=== PATIENT | female | born 1980 | race Asian ===

== ENCOUNTER 2017-01-21 01:39 | Emergency (ER) | payer BC, OTHER ==
[~2017-01-21] VITALS: Ht 160 cm; Wt 104.0 kg
[2017-01-21 01:41] VITALS: Ht 160 cm; Wt 104.0 kg
--- NOTE | 2017-01-21 02:15 | ERD ---
ER Documentation Chief Complaint Date/Time DATE: 01/21/17 TIME: 02:13 Chief Complaint Vaginal bleed x14 wks Soaked 2 pads in 15 minutes HPI 37-year-old female with unknown last menstrual period, patient states that she is 14 weeks , presenting complaining of heavy vaginal bleeding today. Patient states that she already soiled 2 pads. She admits to having intermittent mild crampy pelvic pain. Patient states that she does have an OB/ [employer] and received an ultrasound earlier this morning, later in the afternoon started having vaginal bleeding. She denies any fever or dysuria or N /V/D/C ROS All systems reviewed and are negative except as per history of present illness. Allergies Allergies: Coded Allergies: No Known Allergy (Unverified , 01/14/16) PMhx/Soc Hx Alcohol Use: Yes Hx Substance Use: No Hx Tobacco Use: No Physical Exam Vitals Vital Signs Date Time Temp Pulse Resp B/P Pulse Ox O2 Delivery O2 Flow Rate FiO2 01/21/17 01:41 98.0 82 20 141/87 96 Physical Exam General: well-developed/well-nourished, in no apparent distress, non-toxic appearing HENT: NC/AT Eyes: Conjunctiva normal Neck: Supple Pulm: CTA bilaterally, normal breathing CV: Normal S1S2 GI: Soft, non-distended, normal bowel sounds, TTP on suprapubic region Back: No midline tenderness, no masses, No CVAT Ext: No clubbing, cyanosis, or edema Neuro: Alert and orientated Skin: intact, normal turgor Psych: Normal mood and mentation Result Diagram: 01/21/17 0205 Results 24 hrs Laboratory Tests Test 01/21/17 02:05 01/21/17 03:40 01/21/17 03:50 White Blood Count 19.310^3/ul Red Blood Count 3.7810^6/ul Hemoglobin 12.4g/dl Hematocrit 36.1% Mean Corpuscular Volume 95.5fl Mean Corpuscular Hemoglobin 32.8pg Mean Corpuscular Hemoglobin Concent 34.3g/dl Red Cell Distribution Width 12.5% Platelet Count 50083^3/UL Mean Platelet Volume 10.8fl Neutrophils % 79.6% Lymphocytes % 12.0% Monocytes % 6.0% Eosinophils % 1.1% Basophils % 0.3% Nucleated Red Blood Cells % 0.0/100WBC Neutrophils # (Manual) 15.410^3/ul Lymphocytes # 2.310^3/ul Monocytes # 1.210^3/ul Eosinophils # 0.210^3/ul Basophils # 0.110^3/ul Nucleated Red Blood Cells # 0.010^3/ul Beta HCG, Quantitative 15713.0mIU/ml Urine Color YELLOW Urine Clarity CLEAR Urine pH 7.0 Urine Specific [place] 1.014 Urine Ketones NEGATIVEmg/dL Urine Nitrite NEGATIVEmg/dL Urine Bilirubin NEGATIVEmg/dL Urine Urobilinogen NEGATIVEmg/dL Urine Leukocyte Esterase NEGATIVELeu/ul Urine Microscopic RBC > 182/HPF Urine Microscopic WBC 2/HPF Urine Hemoglobin 3+mg/dL Urine Glucose NEGATIVEmg/dL Urine Total Protein NEGATIVEmg/dl Bedside Urine pH (LAB) 7.0 Bedside Urine Protein (LAB) Negative Bedside Urine Glucose (UA) Negative Bedside Urine Ketones (LAB) Negative Bedside Urine Blood 3+ Bedside Urine Nitrite (LAB) Negative Bedside Urine Leukocyte Esterase (L Negative Current Medications Medications (Trade) Dose Ordered Sig/Nathanael Route PRN Reason Start Time Stop Time Status Last Admin Dose Admin Sodium Chloride (NS) 1,000 ml @ 1,000 mls/hr Q1H STAT IV 01/21/17 02:38 01/21/17 03:37 DC 01/21/17 02:43 Procedures/MDM 37-year-old female with unknown last menstrual period, patient states that she is 14 weeks , presenting complaining of heavy vaginal bleeding today. Patient states that she already soiled 2 pads. Patient states that she does have an [employer] PROFESSION[employer] and received an ultrasound earlier this morning and it was stated to be normal, later in the afternoon she started having heavy vaginal bleeding. Patient is found to have active spontaneous . IV access was established, lab work was drawn. CBC showed leukocytosis likely stress reaction. beta hCG 50,735. OB ultrasound: No live intrauterine identified. Grossly thickened endometrium consistent with hemorrhage. Suspected gestational sac with a poorly defined pole 13 weeks 5 days within the cervix without heart motion consistent with spontaneous . Ovaries not identified. No adnexal mass or free fluid to suggest ectopic . I have attempted to consult couple times and unable to reach her. Pelvic exam was done in the ED, I was able to remove the fetus, pathology was sent out. A repeat ultrasound was done and radiologist stated: OB ultrasound #2: Early failed with retained fetus within the endocervical canal. Status post removal, placental products are seen in the fundal region of the endometrium. Patient does not have any pelvic tenderness. At this time, she appears stable to be discharged home to follow-up with her OB[employer] tomorrow for further care. She was given strict precautions to return to the emergency department if not improving as expected. She understands and agrees with plan Departure Diagnosis: Primary Impression: Vaginal bleeding in patient at less than 20 weeks gestation Condition: Stable CHEMA RHODES PA-C Jan 21, 2017 02:15
[2017-01-21 02:32] LABS: BASOPHIL # 0.1 10^3/ul (0.0-0.1); BASOPHILS % 0.3 % (0.0-2.0); EOSINOPHILS # 0.2 10^3/ul (0.0-0.5); EOSINOPHILS % 1.1 % (0.0-7.0); HEMATOCRIT 36.1 % (37.0-47.0); HEMOGLOBIN 12.4 g/dl (12.0-16.0); LYMPHOCYTES # 2.3 10^3/ul (0.8-2.9); MEAN CORPUSCULAR HEMOGLOBIN 32.8 pg (29.0-33.0); MEAN CORPUSCULAR HGB CONC 34.3 g/dl (32.0-37.0); MEAN CORPUSCULAR VOLUME 95.5 fl (82.0-101.0); MEAN PLATELET VOLUME 10.8 fl (7.4-10.4); MONOCYTE # 1.2 10^3/ul (0.3-0.9); NEUTROPHILS % 79.6 % (39.0-77.0); PLATELET COUNT 221 10^3/UL (140-415); RED BLOOD COUNT 3.78 10^6/ul (4.20-5.40); RED CELL DISTRIBUTION WIDTH 12.5 % (11.5-14.5); WHITE BLOOD COUNT 19.3 10^3/ul (4.8-10.8)
[2017-01-21] MEDS ORDERED: SOD CHLORIDE 0.9% 1,000 ML IV STA (02:38)
--- NOTE | 2017-01-21 03:00 | RADRPT ---
PROCEDURE: US OB. CLINICAL INDICATION: . Vaginal bleeding. TECHNIQUE: Multiple sonographic images of the pelvis were obtained. Transabdominal and transvagin al views of the pelvis are available for review. The images were reviewed on a PACS workstation. COMPARISON: No prior studies are available for comparison. FINDINGS: Uterus is prominent at 15.7 x 7.8 x 9.1 cm. At the cervix there is a possible gestational sac with a poorly characterized 7.56 cm length possible pole crown-rump length corresponding to 13 week s 5 days, without heart motion. No intrauterine gestational sac, pole or heart motion is ident ified. The endometrium is thickened and heterogeneous at 5.1 cm. Uterus is otherwise unremarkable. The ovaries were not visualized. The adnexa are unremarkable. There is no free fluid. IMPRESSION: No live intrauterine identified. Grossly thickened endometrium consistent with hemorrhage . Suspected gestational sac with a poorly defined pole 13 weeks 5 days within the cervix witho ut heart motion consistent with spontaneous . Ovaries not identified. No adnexal mass or semaj e fluid to suggest ectopic . RPTAT: [facility] .Prince Urrutia MD, MD Date Time Electronically viewed and signed by .Prince Urrutia MD, MD on 01/21/2017 02:59 .K/
[2017-01-21 03:44] LABS: URINE BLOOD (Dip) POC 3+ (NEGATIVE)
[2017-01-21 04:51] LABS: ADD UMIC YES; UR ASCORBIC ACID NEGATIVE (NEGATIVE); UR BILIRUBIN (Dip) NEGATIVE (NEGATIVE); UR BLOOD (Dip) 3+ mg/dL (NEGATIVE); UR CLARITY CLEAR (CLEAR); UR COLOR YELLOW (YELLOW); UR GLUCOSE (Dip) NEGATIVE (NEGATIVE); UR KETONES (Dip) NEGATIVE (NEGATIVE); UR LEUKOCYTE ESTERASE (Dip) NEGATIVE Leu/ul (NEGATIVE); UR NITRITE (Dip) NEGATIVE (NEGATIVE); UR RBC > 182 /HPF (0-5); UR SPECIFIC GRAVITY (Dip) 1.014 (1.003-1.030); UR TOTAL PROTEIN (Dip) NEGATIVE (NEGATIVE); UR UROBILINOGEN (Dip) NEGATIVE (NEGATIVE)
--- NOTE | 2017-01-21 05:16 | RADRPT ---
PROCEDURE: US OB. CLINICAL INDICATION: Retained products of conception TECHNIQUE: Transabdominal and endovaginal imaging of the gravid uterus is available for review COMPARISON: None available FINDINGS: There is a single within the endocervical canal with a crown-rump length of 6.9 cm, giving an estimated gestational age of 13 weeks 1 day by ultrasound criteria. No heart tones are de tected. Placental products are seen within the fundal region of the endometrium. IMPRESSION: Early failed with retained fetus within the endocervical canal. Status post removal, plac ental products are seen in the fundal region of the endometrium. RPTAT: HH .Magali Partida MD, Date Time Electronically viewed and signed by .Magali Partida MD, on 01/21/2017 05:16 .G/
== END 2017-01-21 05:35 | disposition home or self-care (01) ==
LOC: FTE 01:39
DX: O20.9 Hemorrhage in early pregnancy, unspecified (principal); R10.2 Pelvic and perineal pain; Z3A.13 13 weeks gestation of pregnancy
CPT/HCPCS: 36415; 76801; 76817; 81001; 84702; 85025; 86900; 86901; 96360; 99285; J7030; 81003